=== PATIENT | male | born 1990 | race Two or more races ===

== ENCOUNTER 2023-12-10 15:03 | Emergency (ER) | payer OTHER, MEDICAID ==
[~2023-12-10] VITALS: Ht 167.6 cm; Wt 72.7 kg
[2023-12-10 15:47] VITALS: BP 129/71; PULSE 80; RESP 18; O2SAT 98
[2023-12-10] MEDS: ONDANSETRON ODT 4 MG TAB PO ONE (16:03)
[2023-12-10] MEDS: ACETAMINOPHEN 500 MG TAB PO ONE (16:04)
[2023-12-10] MEDS ORDERED: BACL10TA PO (16:28)
[2023-12-10] MEDS ORDERED: IBUP-1456 PO (16:28)
[2023-12-10 16:42] VITALS: TEMP 98
== END 2023-12-10 16:38 | disposition home or self-care (01) ==
LOC: ER 15:03 → EDBD 15:03 → ER 16:36
DX: S39.012A Strain of muscle, fascia and tendon of lower back, initial encounter (principal); Z79.899 Other long term (current) drug therapy; V43.52XA Car driver injured in collision with other type car in traffic accident, initial encounter; Y93.I9 Activity, other involving external motion; Y92.89 Other specified places as the place of occurrence of the external cause; Y99.8 Other external cause status
CPT/HCPCS: 72100; 99283; Q0162